=== PATIENT | female | born 1960 | race Hispanic/Latino ===

== ENCOUNTER 2016-08-19 19:01 | Emergency (ER) | payer BC ==
[2016-08-19 21:34] LABS: Basophils % (Auto) 0.5 % (0.0-1.8); Eosinophils % (Auto) 0.6 % (0.0-4.3); Hematocrit 39.2 % (30.3-42.9); Hemoglobin 13.1 gm/dl (10.1-14.3); Mean Corpuscular HGB Conc 33 % (30-34); Mean Corpuscular Hemoglobin 28 pg (28-32); Mean Corpuscular Volume 85 fl (79-97); Platelet Count 247 K/mm3 (140-440); Red Blood Count 4.61 M/mm3 (3.65-5.03); Red Cell Distribution Width 14.3 % (13.2-15.2); White Blood Count 15.5 K/mm3 (4.5-11.0)
[2016-08-19] MEDS ORDERED: AUGMENTIN 875 MG PO ONE (21:37)
[2016-08-19] MEDS ORDERED: NAPROSYN PO ONE (22:10)
[2016-08-19 22:29] LABS: Albumin 4.4 g/dL (3.9-5); Albumin/Globulin Ratio 1.5 %; BUN/Creatinine Ratio 19.33; Bilirubin,Total 0.7 mg/dL (0.1-1.2); Calcium 9.8 mg/dL (8.4-10.2); Chloride 92.8 mmol/L (98-107); Total Protein 7.4 g/dL (6.3-8.2); Uric Acid 8.3 mg/dL (3.5-7.6)
--- NOTE | 2016-08-19 22:29 | Emergency Department Report ---
ED Lower Extremity HPI - General Chief Complaint: Extremity Problem,Nontraumatic Stated Complaint: SWOLLEN/PAIN R FOOT Time Seen by Provider: 08/19/16 21:27 Source: patient Mode of arrival: Ambulatory Limitations: No Limitations - History of Present Illness Initial Comments: Patient complains of right lateral foot pain 2 days. She does endorse a history of gout times once in the past involving her right great toe. She states this is a different type of pain. She initially was seen by her primary physician who sent her over here for blood tests and further evaluation. She denies fever she denies trauma. She states that she is feeling well in general otherwise. MD Complaint: foot injury Onset/Timin -: days(s) Severity scale (0 -10): 5 Improves With: nothing Worsens With: weight bearing, movement, palpation Associated Symptoms: swelling. denies: snap/pop sensation, numbness, tingling - Related Data Previous Rx's Medication Instructions Recorded Last Taken Type Cyclobenzaprine [Flexeril] 10 mg PO TID PRN #15 tablet 06/27/16 Unknown Rx Ibuprofen [Motrin 600 MG tab] 600 mg PO Q8H PRN #30 tablet 06/27/16 Unknown Rx Amoxicillin/K Clav Tab [Augmentin 1 tab PO Q12HR #20 tab 08/19/16 Unknown Rx 875 mg] Naproxen [Naprosyn] 500 mg PO BID #20 tablet 08/19/16 Unknown Rx Potassium Chloride [K-Dur] 20 meq PO QDAY #30 tablet 08/19/16 Unknown Rx Allergies Allergy/AdvReac Type Severity Reaction Status Date / Time No Known Allergies Allergy Unverified 06/27/16 15:05 ED Review of Systems ROS: Stated complaint: SWOLLEN/PAIN R FOOT Other details as noted in HPI Constitutional: denies: chills, fever Eyes: denies: eye pain, eye discharge, vision change ENT: denies: ear pain, throat pain Respiratory: denies: cough, shortness of breath, wheezing Cardiovascular: denies: chest pain, palpitations Endocrine: no symptoms reported Gastrointestinal: denies: abdominal pain, nausea, diarrhea Genitourinary: denies: urgency, dysuria, discharge Musculoskeletal: arthralgia. denies: back pain, joint swelling Skin: change in color (R foot). denies: rash, lesions Neurological: denies: headache, weakness, paresthesias Psychiatric: denies: anxiety, depression Hematological/Lymphatic: denies: easy bleeding, easy bruising ED Past Medical Hx - Past Medical History Previous Medical History?: Yes Hx Hypertension: Yes Hx Arthritis: Yes Hx Psychiatric Treatment: Yes (DEPRESSION) - Surgical History Past Surgical History?: No - Social History Smoking Status: Never Smoker Substance Use Type: None - Medications Home Medications: Home Medications Medication Instructions Recorded Confirmed Last Taken Type Cyclobenzaprine [Flexeril] 10 mg PO TID PRN #15 tablet 06/27/16 Unknown Rx Ibuprofen [Motrin 600 MG tab] 600 mg PO Q8H PRN #30 tablet 06/27/16 Unknown Rx Amoxicillin/K Clav Tab [Augmentin 1 tab PO Q12HR #20 tab 08/19/16 Unknown Rx 875 mg] Naproxen [Naprosyn] 500 mg PO BID #20 tablet 08/19/16 Unknown Rx Potassium Chloride [K-Dur] 20 meq PO QDAY #30 tablet 08/19/16 Unknown Rx ED Physical Exam - General Limitations: No Limitations General appearance: alert, in distress (due to pains) - Head Head exam: Present: atraumatic, normocephalic - Eye Eye exam: Present: normal appearance - ENT ENT exam: Present: mucous membranes moist - Neck Neck exam: Present: normal inspection - Respiratory Respiratory exam: Present: normal lung sounds bilaterally. Absent: respiratory distress - Cardiovascular Cardiovascular Exam: Present: regular rate, normal rhythm. Absent: systolic murmur, diastolic murmur, rubs, gallop - GI/Abdominal GI/Abdominal exam: Present: soft, normal bowel sounds - Extremities Exam Extremities exam: Present: tenderness (right foot lateral aspect with significant tenderness in the mid aspect there is noted edema in this area as well. Patient has mild uvula davidson colored erythema right around this area as well. It is not well demarcated. Edema doesn't involve the dorsum of the foot. Patient having some discomfort with dorsi and plantarflexion of the toes as well. No difficulty with ankle range of motion. Distal pedal pulse and posterior tibial pulses are both palpable and equal to those on the left.) - Back Exam Back exam: Present: normal inspection - Neurological Exam Neurological exam: Present: alert, oriented X3 - Psychiatric Psychiatric exam: Present: normal affect, normal mood - Skin Skin exam: Present: warm, dry, intact, normal color. Absent: rash ED Course Vital Signs 08/19/16 08/19/16 19:51 22:58 Temperature 98.3 F Pulse Rate 72 74 Respiratory 16 16 Rate Blood Pressure 106/68 Blood Pressure 111/76 [Left] O2 Sat by Pulse 96 95 Oximetry - Reevaluation(s) Reevaluation #1: 08/20/16 06:19 X-ray obtained demonstrates no acute fracture as per my interpretation. Blood tests as well are unremarkable with a normal CBC. Electrolyte study did show a potassium quite low at 2.7. I did have further discussion with the patient who indicates this is a chronic problem. She was given 40 mEq of potassium here as well as a prescription for home. She is instructed to follow-up with her physician for continued care. I do get I did give her clindamycin as well as Naprosyn here for her condition. My gestalt is this is not infectious but there is enough concern that I do want to cover for this possibility. Given anti-inflammatories for home as well as clindamycin. No other concerning features noted safe for home. ED Lower Extremity MDM - Lab Data Result diagrams: 08/19/16 21:24 08/19/16 21:24 Critical care attestation.: If time is entered above; I have spent that time in minutes in the direct care of this critically ill patient, excluding procedure time. ED Disposition Clinical Impression: Edema of right foot, Hypokalemia, Renal insufficiency Cellulitis Qualifiers: Site of cellulitis: extremity Site of cellulitis of extremity: lower extremity Laterality: right Qualified Code(s): L03.115 - Cellulitis of right lower limb Disposition: DISCHARGED TO HOME OR SELFCARE Is pt being admited?: No Does the pt Need Aspirin: No Condition: Stable Instructions: Cellulitis (ED) Additional Instructions: Keep foot elevated when possible. Limit activities. Prescriptions: Amoxicillin/K Clav Tab [Augmentin 875 mg] 1 tab PO Q12HR #20 tab Naproxen [Naprosyn] 500 mg PO BID #20 tablet Potassium Chloride [K-Dur] 20 meq PO QDAY #30 tablet Referrals: JACQUELINE SMALL MD [Primary Care Provider] - 3-5 Days Forms: Work/School Release Form(ED) Time of Disposition: 22:30
[2016-08-19 22:32] LABS: Potassium 2.7 mmol/L (3.6-5.0)
[2016-08-19] MEDS ORDERED: INDOCIN PO ONE (22:37)
[2016-08-19] MEDS ORDERED: K-DUR PO ONE (22:46)
[2016-08-19 22:59] VITALS: BP 111/76
--- NOTE | 2016-08-20 09:13 | XRay Report ---
RIGHT FOOT RADIOGRAPHS: INDICATION: Pain. COMPARISON: None similar at this institution. FINDINGS: AP and lateral right foot radiographs demonstrate intact bony articulation. No suspicious erosions. However, subtle periosteal reaction along the second metatarsal shaft noted on the frontal view. Slight dorsal soft tissues swelling overlying the metatarsals also possible. Demineralized bones. CONCLUSION: 1. Stress (March) fracture of the right second metatarsal suspected, as described. Directed clinical correlation recommended. 2. Few other findings, including possible soft tissue swelling. Thank you for the opportunity to participate in this patient's care.
== END 2016-08-19 22:59 | disposition home or self-care (01) ==
LOC: ED 19:01
DX: L03.115 Cellulitis of right lower limb (principal); R60.0 Localized edema; E87.6 Hypokalemia; N28.9 Disorder of kidney and ureter, unspecified; I10 Essential (primary) hypertension
CPT/HCPCS: 36415; 80053; 84550; 85025